=== PATIENT | male | born 1990 | race African-American/Black ===

== ENCOUNTER 2016-08-10 12:08 | Emergency (ER) | payer OTHER ==
[~2016-08-10] VITALS: Ht 165.1 cm; Wt 54.7 kg
[~2016-08-10 12:08] MED LIST: NOHOMEMEDS
[2016-08-10 12:57] LABS: EOSINOPHIL (%) 0.9 % (0-5); EOSINOPHIL COUNT 0.1 K/uL (0-0.3); HEMATOCRIT 35.6 % (38.0-50.0); IMMATURE GRANULOCYTE (%) 0.3 % (0.0-0.7); INSTRUMENT ABS NEUTROPHIL CT 5.5 K/uL; LYMPHOCYTE COUNT 1.7 K/uL (1.0-2.8); MCH 30.9 PG (29.0-34.0); MCHC 32.9 G/DL (30.0-36.0); MCV 93.9 FL (86-99); MEAN PLAT.VOLUME 10.6 uM^3 (9.0-12.4); MONOCYTE (%) 6.7 % (3-12); MONOCYTE COUNT 0.5 K/uL (0-0.8); NEUTROPHIL (%) 70.5 % (45-76); NEUTROPHIL COUNT 5.5 K/uL (1.8-6.4); PLATELET COUNT 394 K/uL (156-360); RBC DIS.WIDTH-CV 12.3 % (11.8-14.6); RBC DIS.WIDTH-SD 41.8 % (39-53); RED BLOOD COUNT 3.79 M/uL (4.00-5.50); WHITE BLOOD COUNT 7.7 K/uL (4.1-10.2)
[2016-08-10 13:05] LABS: CHLORIDE 102 mEq/L (99-109); SODIUM 140 mEq/L (136-147)
[2016-08-10 13:07] LABS: GLUCOSE 148 mg/dL (70-99)
[2016-08-10 13:08] LABS: ANION GAP 9 MEQ/L (2-14)
[2016-08-10 13:11] LABS: GFR ESTIMATE (CALCULATED) > 59 mL/min/
[2016-08-10 13:12] LABS: UREA NITROGEN (BUN) 17 mg/dL (9-23)
[2016-08-10] MEDS ORDERED: ORAZINC220 MG GT (14:37)
[2016-08-10] MEDS ORDERED: VITAMIN C W/AC500 M1 GT (14:38)
[2016-08-10] MEDS ORDERED: TYLENOL650 MG PR (14:39)
[2016-08-10] MEDS ORDERED: GENTLE LAXATIVE5 M1 PO (14:39)
[2016-08-10] MEDS ORDERED: GABAPENTIN300 MG GT (14:40)
[2016-08-10] MEDS ORDERED: LOVENOX30 MG/0.3 SC (14:40)
[2016-08-10] MEDS ORDERED: QUETIAPINE FUMA25 MG GT (14:41)
[2016-08-10] MEDS ORDERED: SENEXON-S TABL1 EACH PO (14:41)
[2016-08-10] MEDS ORDERED: SENOKOT S,PE1 TABLET PO (14:43)
[2016-08-10] MEDS ORDERED: PROPRANOLOL HCL10 MG GT (14:43)
[2016-08-10] MEDS ORDERED: TRANSDERM-SCO1 PATCH TD (14:44)
[2016-08-10] MEDS ORDERED: BACTROBAN CREAM15 GM TP (14:44)
[2016-08-10 16:26] VITALS: BP 125/89
== END 2016-08-10 16:27 | disposition designated cancer center or children's hospital (05) ==
LOC: EME 12:08
PROVIDERS: Emergency Medicine
DX: Z45.89 Encounter for adjustment and management of other implanted devices (principal); R40.3 Persistent vegetative state; S06.9X0S Unspecified intracranial injury without loss of consciousness, sequela; Z98.2 Presence of cerebrospinal fluid drainage device; Z87.891 Personal history of nicotine dependence; Z93.1 Gastrostomy status; I95.9 Hypotension, unspecified
CPT/HCPCS: 70450; 80048; 85025; 99281; 99285

== ENCOUNTER 2016-08-30 00:07 | Emergency (ER) | payer OTHER ==
[~2016-08-30] VITALS: Ht 162.6 cm; Wt 52.7 kg
[~2016-08-30 00:07] MED LIST changes: +BACTROBAN CREAM15 GM TP; +GABAPENTIN300 MG GT; +GENTLE LAXATIVE5 M1 PO; +LOVENOX30 MG/0.3 SC; +ORAZINC220 MG GT; +PROPRANOLOL HCL10 MG GT; +QUETIAPINE FUMA25 MG GT; +SENEXON-S TABL1 EACH PO; +SENOKOT S,PE1 TABLET PO; +TRANSDERM-SCO1 PATCH TD; +TYLENOL650 MG PR; +VITAMIN C W/AC500 M1 GT
[2016-08-30 01:04] LABS: HEMATOCRIT 41.1 % (38.0-50.0); MCH 31.5 PG (29.0-34.0); MCHC 33.8 G/DL (30.0-36.0); MCV 93.2 FL (86-99); RBC DIS.WIDTH-CV 13.2 % (11.8-14.6); RBC DIS.WIDTH-SD 45.1 % (39-53); RED BLOOD COUNT 4.41 M/uL (4.00-5.50); WHITE BLOOD COUNT 9.6 K/uL (4.1-10.2)
[2016-08-30 01:15] LABS: D-DIMER ELISA 0.36 mg/L FEU (< 0.57)
[2016-08-30 01:16] LABS: CHLORIDE 100 mEq/L (99-109); POTASSIUM 3.8 mEq/L (3.7-5.4); SODIUM 139 mEq/L (136-147)
[2016-08-30 01:19] LABS: ADD MIUA? YES; BILIRUBIN NEGATIVE; BLOOD SMALL; COLOR YELLOW ((YELLOW)); GLUCOSE (STRIP) NEGATIVE; KETONES NEGATIVE; LEUKOCYTES NEGATIVE; NITRITE NEGATIVE; PROTEIN (STRIP) NEGATIVE; UROBILINOGEN 0.2 MG/DL (0.2-1.0)
[2016-08-30 01:19] LABS: GLUCOSE 168 mg/dL (70-99)
[2016-08-30 01:20] LABS: ANION GAP 10 MEQ/L (2-14); TOTAL BILIRUBIN 0.6 mg/dL (0.0-1.0)
[2016-08-30 01:22] LABS: ALKALINE PHOSPHATASE 47 IU/L (3-129); GFR ESTIMATE (CALCULATED) > 59 mL/min/
[2016-08-30 01:23] LABS: UREA NITROGEN (BUN) 23 mg/dL (9-23)
[2016-08-30 01:26] LABS: BACTERIA NONE SEEN /HPF; EPITHELIAL CELLS RARE /HPF; MUCUS TRACE /LPF; RED BLOOD CELLS 15-20 /HPF (0-5); UCUL ADDED? NO; WHITE BLOOD CELLS 0-5 /HPF (0-5)
[2016-08-30 01:26] LABS: LIPASE 19 U/L (1.0-51.0)
[2016-08-30 01:33] LABS: TROP-I INTERPRETATION NEGATIVE; TROPONIN-I < 0.01 ng/mL (0.0-0.30)
[2016-08-30 02:03] LABS: HEMATOLOGY COMMENT 1 SMEAR COMPATIBLE; MEAN PLAT.VOLUME 10.7 uM^3 (9.0-12.4); PLAT.SUFFICIENCY ADEQUATE; PLATELET COUNT 248 K/uL (156-360)
[2016-08-30 05:48] VITALS: BP 116/80
== END 2016-08-30 05:52 ==
LOC: EME → EDBD 00:07 → EME 00:07
PROVIDERS: Emergency Medicine
DX: R00.0 Tachycardia, unspecified (principal); Z87.820 Personal history of traumatic brain injury; R31.9 Hematuria, unspecified; R73.9 Hyperglycemia, unspecified; R61 Generalized hyperhidrosis; Z98.2 Presence of cerebrospinal fluid drainage device; Z93.1 Gastrostomy status; Z87.891 Personal history of nicotine dependence
CPT/HCPCS: 70450; 71010; 80053; 81003; 83690; 84443; 84484; 85027; 85379; 93005; 99281; 99284; J2270

== ENCOUNTER 2016-09-07 15:29 | Emergency (ER) | payer OTHER ==
[~2016-09-07] VITALS: Ht 180.3 cm; Wt 55.1 kg
[2016-09-07 16:43] LABS: EOSINOPHIL COUNT 0.1 K/uL (0-0.3); HEMATOCRIT 40.8 % (38.0-50.0); IMMATURE GRANULOCYTE (%) 0.3 % (0.0-0.7); INSTRUMENT ABS NEUTROPHIL CT 7.4 K/uL; LYMPHOCYTE COUNT 1.7 K/uL (1.0-2.8); MCH 31.3 PG (29.0-34.0); MCHC 33.3 G/DL (30.0-36.0); MEAN PLAT.VOLUME 11.1 uM^3 (9.0-12.4); MONOCYTE (%) 7.2 % (3-12); MONOCYTE COUNT 0.7 K/uL (0-0.8); NEUTROPHIL (%) 74.7 % (45-76); NEUTROPHIL COUNT 7.4 K/uL (1.8-6.4); PLATELET COUNT 265 K/uL (156-360); RBC DIS.WIDTH-CV 12.8 % (11.8-14.6); RBC DIS.WIDTH-SD 44.2 % (39-53); RED BLOOD COUNT 4.34 M/uL (4.00-5.50); WHITE BLOOD COUNT 9.9 K/uL (4.1-10.2)
[2016-09-07 16:51] LABS: CHLORIDE 101 mEq/L (99-109); SODIUM 139 mEq/L (136-147)
[2016-09-07 16:52] LABS: GLUCOSE 120 mg/dL (70-99)
[2016-09-07 16:54] LABS: ANION GAP 8 MEQ/L (2-14)
[2016-09-07 16:56] LABS: GFR ESTIMATE (CALCULATED) > 59 mL/min/
[2016-09-07 16:57] LABS: UREA NITROGEN (BUN) 18 mg/dL (9-23)
[2016-09-07 18:47] LABS: ADD MIUA? YES; BILIRUBIN NEGATIVE; BLOOD NEGATIVE; COLOR YELLOW ((YELLOW)); GLUCOSE (STRIP) NEGATIVE; KETONES NEGATIVE; LEUKOCYTES NEGATIVE; NITRITE NEGATIVE; PROTEIN (STRIP) 30; SPECIFIC GRAVITY 1.017 (1.000-1.030); UROBILINOGEN 0.2 MG/DL (0.2-1.0)
[2016-09-07 18:53] VITALS: BP 116/83
[2016-09-07 19:20] LABS: AMORPHOUS PHOSPHATE CRYSTALS 3+; BACTERIA NONE SEEN /HPF; CASTS NONE SEEN /LPF; CRYSTALS PRESENT; EPITHELIAL CELLS NONE SEEN /HPF; MUCUS NONE SEEN /LPF; RED BLOOD CELLS NONE SEEN /HPF (0-5); UCUL ADDED? NO; WHITE BLOOD CELLS NONE SEEN /HPF (0-5)
== END 2016-09-07 19:49 | disposition short-term general hospital (02) ==
LOC: EME 15:29
DX: T85.01XA Breakdown (mechanical) of ventricular intracranial (communicating) shunt, initial encounter (principal); G91.9 Hydrocephalus, unspecified; I61.3 Nontraumatic intracerebral hemorrhage in brain stem; Y83.1 Surgical operation with implant of artificial internal device as the cause of abnormal reaction of the patient, or of later complication, without mention of misadventure at the time of the procedure; Z98.2 Presence of cerebrospinal fluid drainage device; Z87.820 Personal history of traumatic brain injury; Z87.891 Personal history of nicotine dependence
CPT/HCPCS: 70450; 71010; 80048; 81003; 83605; 85025; 87040; 99281; 99285; J7030

== ENCOUNTER 2016-09-20 12:08 | Inpatient (IN) | payer OTHER ==
[~2016-09-20] VITALS: Ht 180.3 cm; Wt 53.0 kg
[~2016-09-20 12:08] MED LIST changes: +GENTLE LAXATIVE5 M1 GT; -GENTLE LAXATIVE5 M1 PO; +SENOKOT S,PE1 TABLET GT; -SENOKOT S,PE1 TABLET PO
[2016-09-20] MEDS ORDERED: DIFLUCAN100 MG GT (12:44)
[2016-09-20] MEDS ORDERED: JEVITY1000 M1 GT (12:48)
[2016-09-20 13:25] LABS: EOSINOPHIL (%) 0.4 % (0-5); HEMATOCRIT 42.2 % (38.0-50.0); IMMATURE GRANULOCYTE (%) 0.2 % (0.0-0.7); INSTRUMENT ABS NEUTROPHIL CT 7.4 K/uL; LYMPHOCYTE COUNT 1.3 K/uL (1.0-2.8); MCH 31.4 PG (29.0-34.0); MCHC 33.6 G/DL (30.0-36.0); MCV 93.4 FL (86-99); MEAN PLAT.VOLUME 11.9 uM^3 (9.0-12.4); MONOCYTE (%) 6.1 % (3-12); MONOCYTE COUNT 0.6 K/uL (0-0.8); NEUTROPHIL (%) 79.5 % (45-76); NEUTROPHIL COUNT 7.4 K/uL (1.8-6.4); PLATELET COUNT 227 K/uL (156-360); RBC DIS.WIDTH-CV 13.1 % (11.8-14.6); RBC DIS.WIDTH-SD 44.9 % (39-53); RED BLOOD COUNT 4.52 M/uL (4.00-5.50); WHITE BLOOD COUNT 9.4 K/uL (4.1-10.2)
[2016-09-20 13:35] LABS: CHLORIDE 102 mEq/L (99-109); POTASSIUM 3.7 mEq/L (3.7-5.4); SODIUM 141 mEq/L (136-147)
[2016-09-20 13:37] LABS: GLUCOSE 164 mg/dL (70-99)
[2016-09-20 13:39] LABS: ANION GAP 11 MEQ/L (2-14); TOTAL BILIRUBIN 0.4 mg/dL (0.0-1.0)
[2016-09-20 13:39] LABS: ADD MIUA? YES; BILIRUBIN NEGATIVE; BLOOD NEGATIVE; COLOR YELLOW ((YELLOW)); GLUCOSE (STRIP) NEGATIVE; KETONES NEGATIVE; LEUKOCYTES NEGATIVE; NITRITE POSITIVE; PROTEIN (STRIP) NEGATIVE; SPECIFIC GRAVITY 1.011 (1.000-1.030); UROBILINOGEN 0.2 MG/DL (0.2-1.0)
[2016-09-20 13:41] LABS: ALKALINE PHOSPHATASE 47 IU/L (3-129); GFR ESTIMATE (CALCULATED) > 59 mL/min/
[2016-09-20 13:42] LABS: UREA NITROGEN (BUN) 18 mg/dL (9-23)
[2016-09-20 14:21] LABS: EPITHELIAL CELLS RARE /HPF; RED BLOOD CELLS NONE SEEN /HPF (0-5); WHITE BLOOD CELLS RARE /HPF (0-5)
[2016-09-20 14:22] LABS: AMORPHOUS PHOSPHATE CRYSTALS 4+; UCUL ADDED? NO
[2016-09-20 14:23] LABS: MUCUS TRACE /LPF
[2016-09-20] MEDS ORDERED: SILACE50 MG/5 ML GT (17:03)
[2016-09-20] MEDS ORDERED: CHILDREN'S160 MG/23 GT (17:09)
[2016-09-20] MEDS ORDERED: ACETAMINOPHEN325 M1 GT (17:10)
[2016-09-20] MEDS ORDERED: VITAMIN C500 M1 GT (17:12)
[2016-09-20] MEDS ORDERED: AQUAPHOR W-NAT50 GM TP (17:14)
[2016-09-20] MEDS ORDERED: JEVITY1000 M1 PO (17:15)
[2016-09-20] MEDS ORDERED: CALMOSEPTINE O120 GM TP (17:16)
[2016-09-20] MEDS ORDERED: TUMS500 MG PO (17:17)
[2016-09-20 19:52] VITALS: BP 123/80
[2016-09-20 22:55] VITALS: BP 122/77
[2016-09-21 03:48] VITALS: BP 109/67
[2016-09-21 04:24] LABS: METH RESISTANT S AUREUS PCR POSITIVE (NEGATIVE)
[2016-09-21 04:30] LABS: PROBE CHECK PASS
[2016-09-21 06:48] LABS: HEMATOCRIT 34.8 % (38.0-50.0); MCH 31.5 PG (29.0-34.0); MCV 95.3 FL (86-99); MEAN PLAT.VOLUME 12.2 uM^3 (9.0-12.4); PLATELET COUNT 196 K/uL (156-360); RBC DIS.WIDTH-CV 13.2 % (11.8-14.6); RBC DIS.WIDTH-SD 46.6 % (39-53); RED BLOOD COUNT 3.65 M/uL (4.00-5.50); WHITE BLOOD COUNT 7.9 K/uL (4.1-10.2)
[2016-09-21 07:28] LABS: ANION GAP 9 MEQ/L (2-14); CHLORIDE 108 MEQ/L (99-109); GFR ESTIMATE (CALCULATED) > 59 mL/min/; POTASSIUM 3.8 MEQ/L (3.7-5.4); SAMPLE HEMOLYSIS CHECK 0; SAMPLE ICTERIC CHECK 0; SAMPLE LIPEMIA CHECK 0; SODIUM 143 MEQ/L (136-147); UREA NITROGEN (BUN) 13 mg/dL (9-23)
[2016-09-21 07:31] LABS: GLUCOSE 106 mg/dL (70-99)
[2016-09-21 07:38] VITALS: BP 110/62
[2016-09-21 10:38] VITALS: BP 138/69
[2016-09-21 17:23] VITALS: BP 130/70
[2016-09-21 20:17] VITALS: BP 113/69
[2016-09-21 23:33] VITALS: BP 126/72
[2016-09-22 04:18] VITALS: BP 105/66
[2016-09-22 07:06] LABS: HEMATOCRIT 34.2 % (38.0-50.0); MCH 31.9 PG (29.0-34.0); MCHC 33.3 G/DL (30.0-36.0); MCV 95.8 FL (86-99); RBC DIS.WIDTH-CV 13.2 % (11.8-14.6); RBC DIS.WIDTH-SD 46.5 % (39-53); RED BLOOD COUNT 3.57 M/uL (4.00-5.50); WHITE BLOOD COUNT 6.4 K/uL (4.1-10.2)
[2016-09-22 07:11] LABS: ANION GAP 10 MEQ/L (2-14); CHLORIDE 106 MEQ/L (99-109); MAGNESIUM 1.9 mg/dl (1.3-2.7); SAMPLE HEMOLYSIS CHECK 0; SAMPLE ICTERIC CHECK 0; SAMPLE LIPEMIA CHECK 0; SODIUM 140 MEQ/L (136-147)
[2016-09-22 07:17] LABS: GFR ESTIMATE (CALCULATED) > 59 mL/min/; GLUCOSE 81 mg/dL (70-99); UREA NITROGEN (BUN) 9 mg/dL (9-23)
[2016-09-22 07:50] VITALS: BP 108/63
[2016-09-22 07:50] LABS: HEMATOLOGY COMMENT 1 SMEAR COMPATIBLE; MEAN PLAT.VOLUME 13.4 uM^3 (9.0-12.4); PLAT.SUFFICIENCY DECREASED
[2016-09-22 07:54] LABS: PLATELET COUNT 127 K/uL (156-360)
[2016-09-22 11:43] VITALS: BP 135/89
== END 2016-09-22 17:13 | disposition short-term general hospital (02) | DRG 699 ==
LOC: EME → EDBD 12:08 → EME 12:08 → EDOF 16:47 → 3EAST 16:47
PROVIDERS: Emergency Medicine; Internal Medicine
PROC: 00W Central Nervous System and Cranial Nerves, Revision (ICD-10-PCS; principal; 2016-09-22)
DX: T83.511A Infection and inflammatory reaction due to indwelling urethral catheter, initial encounter (principal); G91.3 Post-traumatic hydrocephalus, unspecified; Z68.1 Body mass index [BMI] 19.9 or less, adult; R40.3 Persistent vegetative state; R64 Cachexia; N39.0 Urinary tract infection, site not specified; T81.89XA Other complications of procedures, not elsewhere classified, initial encounter; G93.89 Other specified disorders of brain; M24.50 Contracture, unspecified joint; B96.89 Other specified bacterial agents as the cause of diseases classified elsewhere; Z98.2 Presence of cerebrospinal fluid drainage device; Z87.820 Personal history of traumatic brain injury; Z87.891 Personal history of nicotine dependence
CPT/HCPCS: 70450; 71010; 80048; 80053; 81003; 83605; 83735; 85025; 85027; 87040; 87077; 87086; 87186; 87641; 99281; 99285; J0696; J1650; J3370; J7030; J7050